=== PATIENT | male | born 1995 | race African-American/Black ===

== ENCOUNTER 2016-10-19 12:49 | Emergency (ER) | payer MEDICAID ==
[2016-10-19 12:51] VITALS: BP 156/92; PULSE 87; RESP 16; TEMP 98.4; O2SAT 98
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
[2016-10-19 14:53] LABS: BICARBONATE 28.5 MEQ/L (21.0-32.0); POTASSIUM 3.8 MEQ/L (3.5-5.1)
[2016-10-19 14:56] LABS: AUTOMATED NEUTROPHIL # 10.8 TH/MM3 (1.8-7.7); BASOPHIL % 0.2 % (0.0-2.0); EOSINOPHIL % 0.4 % (0.0-4.0); HEMATOCRIT 46.7 % (39.0-51.0); HEMO FLAGS DIFF FINAL; LYMPH % 10.1 % (9.0-44.0); LYMPHOCYTE # 1.3 TH/MM3 (1.0-4.8); MEAN CELL VOLUME 82.3 FL (80.0-100.0); MEAN CORPUSCULAR HEMOGLOBIN 26.7 PG (27.0-34.0); MEAN CORPUSCULAR HGB CONC 32.4 % (32.0-36.0); MONO % 6.8 % (0.0-8.0); NEUT % 82.5 % (16.0-70.0); PLATELET COUNT 244 TH/MM3 (150-450); RED BLOOD COUNT 5.68 MIL/MM3 (4.50-5.90); WHITE BLOOD COUNT 13.1 TH/MM3 (4.0-11.0)
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
[2016-10-19 16:30] VITALS: BP 132/65
== END 2016-10-19 16:33 | disposition home or self-care (01) ==
LOC: NEPD 12:49
DX: S00.81XA Abrasion of other part of head, initial encounter (principal); S40.219A Abrasion of unspecified shoulder, initial encounter; S30.810A Abrasion of lower back and pelvis, initial encounter; V86.59XA Driver of other special all-terrain or other off-road motor vehicle injured in nontraffic accident, initial encounter
CPT/HCPCS: 70450; 70486; 71010; 72050; 72110; 72170; 73030; 80048; 85025; 99285